=== PATIENT | female | born 1970 | race Two or more races ===

== ENCOUNTER 2022-09-05 13:37 | Inpatient (IN) | payer MEDICAID, OTHER ==
[~2022-09-05] VITALS: Ht 172.7 cm; Wt 80.1 kg
[2022-09-05] MEDS ORDERED: MORPHINE SULFATE 4 MG/ML SYR/VIAL IV ONE (14:00)
[2022-09-05] MEDS ORDERED: ONDANSETRON HCL 4 MG/2 ML VIAL IV ONE (14:00)
[2022-09-05] MEDS ORDERED: SODIUM CHLORIDE 0.9% 1,000 ML IV ONE ×2 (14:00)
[2022-09-05] MEDS ORDERED: cefTRIAXone 1GM/50ML D5W 50 ML IV ONE (14:00)
[2022-09-05 14:22] LABS: Basophils # (auto) 0 10 ^3/uL (0-0.2); Basophils % (auto) 0.6 % (0.0-2.0); Eosinophils # (auto) 0.2 10 ^3/uL (0-0.8); Hematocrit 40.3 % (36.0-46.0); Hemoglobin 13.6 g/dL (12.2-16.2); Lymphocytes # (auto) 1.7 10 ^3/uL (0.4-5.4); Lymphocytes % (auto) 23.1 % (10.0-50.0); Mean Corpuscular Hgb Conc. 33.7 g/dL (32.0-36.0); Monocytes # (auto) 0.3 10 ^3/uL (0-1.3); Monocytes % (auto) 4.3 % (0.0-12.0); Nucleated Red Blood Cells % 0.1 %; Red Blood Cells 4.37 10^6/uL (4.0-5.20); Red Cell Distribution Width 14.3 % (11.8-14.3); White Blood Cell 7.3 10^3/uL (4.4-10.8)
[2022-09-05 14:38] LABS: Albumin 3.7 g/dL (3.4-5.0); Calcium 8.9 mg/dL (8.5-10.1); Potassium 3.3 mmol/L (3.5-5.1)
[2022-09-05 14:42] LABS: Bilirubin, Total 0.7 mg/dL (0.2-1.0); Total Protein 7.3 g/dL (6.4-8.2)
[2022-09-05 16:35] LABS: Urine Bacteria FEW /hpf (None Seen); Urine Blood 1+ /uL (Negative); Urine Hyaline Cast FEW /lpf (0 - 2); Urine Mucus FEW (None Seen); Urine Specific Gravity 1.028 (1.001-1.035); Urine WBC 15 /hpf (0 - 5)
[2022-09-05] MEDS ORDERED: LORA-1120 PO (18:25)
[2022-09-05] MEDS ORDERED: DIVA500T13 PO (18:25)
[2022-09-05] MEDS ORDERED: KETOROLAC TROMETH 30 MG/ML 1ML VIAL IV ONE (18:30)
[2022-09-05] MEDS ORDERED: POTASSIUM EFFERVESENT TAB 25 MEQ PO ONE (18:30)
[2022-09-05 19:18] LABS: INR 1.1 (0.9-1.15)
[2022-09-05 19:22] LABS: Lipase 104 U/L (73-393)
[2022-09-05 19:26] LABS: Cholesterol 164 mg/dL (< 200); HDL Cholesterol 66 mg/dL (40-59); LDL Cholesterol 88 mg/dL (< 100); Triglycerides 65 mg/dL (< 150)
[2022-09-05] MEDS: ONDANSETRON HCL 4 MG/2 ML VIAL IV PRN (23:24)
[2022-09-05] MEDS: SODIUM CHLORIDE 0.9% 1,000 ML IV SCH (23:41)
[2022-09-06] MEDS: SODIUM CHLORIDE 0.9% 1,000 ML IV SCH ×4 (02:51→20:10)
[2022-09-06] MEDS: KETOROLAC TROMETH 30 MG/ML 1ML VIAL IV PRN ×3 (03:15→11:46)
[2022-09-06] MEDS: ONDANSETRON HCL 4 MG/2 ML VIAL IV PRN ×2 (07:44→11:42)
[2022-09-06] MEDS: cefTRIAXone 1GM/50ML D5W 50 ML IV SCH (08:18)
[2022-09-06 08:50] LABS: Basophils # (auto) 0 10 ^3/uL (0-0.2); Basophils % (auto) 0.2 % (0.0-2.0); Eosinophils # (auto) 0 10 ^3/uL (0-0.8); Hematocrit 45.5 % (36.0-46.0); Hemoglobin 15.4 g/dL (12.2-16.2); Lymphocytes % (auto) 12.2 % (10.0-50.0); Mean Corpuscular Hemoglobin 31.3 pg (28.0-32.0); Mean Corpuscular Hgb Conc. 33.9 g/dL (32.0-36.0); Mean Corpuscular Volume 92.3 fL (80.0-100.0); Monocytes % (auto) 6.1 % (0.0-12.0); Neutrophils # (auto) 13.1 10 ^3/uL (1.6-8.6); Neutrophils % (auto) 81.5 % (37.0-80.0); Red Blood Cells 4.93 10^6/uL (4.0-5.20); Red Cell Distribution Width 14.3 % (11.8-14.3)
[2022-09-06] MEDS: MORPHINE SULFATE INJ 2 MG/ml SYRG IV PRN ×2 (09:08→15:18)
[2022-09-06 09:13] LABS: Albumin 3.3 g/dL (3.4-5.0); Calcium 9.6 mg/dL (8.5-10.1); Potassium 4.7 mmol/L (3.5-5.1)
[2022-09-06 09:17] LABS: BUN/Creatinine Ratio 40.8 (10.0-20.0); Bilirubin, Total 0.5 mg/dL (0.2-1.0)
[2022-09-06] MEDS: ENOXAPARIN SOD 40 MG/0.4 ML SYRINGE SC SCH (10:10)
[2022-09-06 16:10] VITALS: BP 143/101
[2022-09-06 17:00] VITALS: BP 148/100
[2022-09-06 22:00] VITALS: BP 149/91
[2022-09-07] VITALS (23 sets, daily range): BP systolic 125–163; BP diastolic 68–100
[2022-09-07] MEDS: MORPHINE SULFATE INJ 2 MG/ml SYRG IV PRN ×2 (00:55→08:34)
[2022-09-07] MEDS: SODIUM CHLORIDE 0.9% 1,000 ML IV SCH ×3 (02:50→22:11)
[2022-09-07] MEDS: ONDANSETRON HCL 4 MG/2 ML VIAL IV PRN (08:41)
[2022-09-07] MEDS: cefTRIAXone 1GM/50ML D5W 50 ML IV SCH (08:48)
[2022-09-07] MEDS ORDERED: GASTROGRAFIN 120 ML SOL ONE (09:48)
[2022-09-07] MEDS: ENOXAPARIN SOD 40 MG/0.4 ML SYRINGE SC SCH (10:00)
[2022-09-07] MEDS ORDERED: LORA-1120 PO (10:48)
[2022-09-07] MEDS ORDERED: metroNIDAZOLE 500MG/100ML 100 ML IV ONE (11:34)
[2022-09-07] MEDS ORDERED: SUCCINYLCHOLINE CHLORIDE 20 MG/ML 10ML VIAL IV ONE (11:52)
[2022-09-07] MEDS ORDERED: HYDROmorphone HCL 2 MG/ML VL/or syr ONE (12:04)
[2022-09-07] MEDS ORDERED: fentaNYL CITRATE 100 MCG/2 ML VL ONE (12:04)
[2022-09-07] MEDS ORDERED: fentaNYL CITRATE 5 ML ONE (12:04)
[2022-09-07] MEDS ORDERED: NEOSTIGMINE 1 MG/ML INJ (10mg/10ML VIAL) ONE (12:04)
[2022-09-07] MEDS ORDERED: SODIUM CHLORIDE LOCK 10 ML ONE (12:04)
[2022-09-07] MEDS ORDERED: MIDAZOLAM HCL 2MG/2ML 2ml VIAL (1mg/ml) ONE (12:04)
[2022-09-07] MEDS ORDERED: DexAMETHasone SOD PHOS 10MG/1ML VIAL INJ ONE (12:06)
[2022-09-07] MEDS ORDERED: GLYCOPYRROLATE 0.2 MG/ML 1ML VIAL ONE (12:06)
[2022-09-07] MEDS ORDERED: ONDANSETRON HCL 4 MG/2 ML VIAL ONE (12:06)
[2022-09-07] MEDS ORDERED: MORPHINE SULFATE INJ 2 MG/ml SYRG IV PRN (13:15)
[2022-09-07] MEDS ORDERED: METOCLOPRAMIDE HCL 5MG/ml INJ 2ml VIAL IV PRN (13:15)
[2022-09-07] MEDS ORDERED: HYDROmorphone HCL 2 MG/ML VL/or syr IV PRN ×2 (13:15)
[2022-09-07] MEDS ORDERED: DEXTROSE (50%) 50ML SYRG IV PRN (18:00)
[2022-09-07] MEDS ORDERED: hydrALAZINE HCL 20 MG/ML VL IV PRN (18:00)
[2022-09-07] MEDS: InsuLIN REG 1unit/0.01ml Soln (100units/ml) SC SCH (18:00)
[2022-09-07] MEDS: ACCU-CHEK COMFORT CURVE STRIP VI SCH (18:15)
[2022-09-07 18:31] LABS: Albumin 2.7 g/dL (3.4-5.0); BUN/Creatinine Ratio 45.7 (10.0-20.0); Calcium 8.9 mg/dL (8.5-10.1); Magnesium 2.2 mg/dL (1.6-2.6); Phosphorus 3.9 mg/dL (2.5-4.90); Potassium 4.6 mmol/L (3.5-5.1)
[2022-09-07] MEDS: HYDROmorphone HCL 2 MG/ML VL/or syr IV PRN ×2 (19:30→22:40)
[2022-09-07] MEDS: D5W/SOD CHL 0.45%/KCL 20MEQ 1,000 ML IV SCH (22:09)
[2022-09-07] MEDS: metroNIDAZOLE 500MG/100ML 100 ML IV SCH (22:09)
[2022-09-07] MEDS: ALBUMIN 25% 50 ML IV SCH (22:10)
[2022-09-08] VITALS (38 sets, daily range): BP systolic 99–167; BP diastolic 54–91
[2022-09-08] MEDS: ACCU-CHEK COMFORT CURVE STRIP VI SCH ×4 (00:27→18:06)
[2022-09-08] MEDS: InsuLIN REG 1unit/0.01ml Soln (100units/ml) SC SCH ×4 (00:28→18:00)
[2022-09-08] MEDS: HYDROmorphone HCL 2 MG/ML VL/or syr IV PRN ×3 (02:15→17:45)
[2022-09-08] MEDS: KETOROLAC TROMETH 30 MG/ML 1ML VIAL IV PRN ×2 (04:53→20:40)
[2022-09-08 05:05] LABS: Basophils # (auto) 0 10 ^3/uL (0-0.2); Basophils % (auto) 0.1 % (0.0-2.0); Eosinophils # (auto) 0 10 ^3/uL (0-0.8); Hematocrit 37.4 % (36.0-46.0); Hemoglobin 12.5 g/dL (12.2-16.2); Lymphocytes # (auto) 2.8 10 ^3/uL (0.4-5.4); Lymphocytes % (auto) 18.3 % (10.0-50.0); Mean Corpuscular Hemoglobin 31.5 pg (28.0-32.0); Mean Corpuscular Hgb Conc. 33.5 g/dL (32.0-36.0); Mean Corpuscular Volume 94.2 fL (80.0-100.0); Monocytes # (auto) 2.3 10 ^3/uL (0-1.3); Monocytes % (auto) 15.3 % (0.0-12.0); Neutrophils # (auto) 10.1 10 ^3/uL (1.6-8.6); Neutrophils % (auto) 66.3 % (37.0-80.0); Red Blood Cells 3.97 10^6/uL (4.0-5.20); Red Cell Distribution Width 14.8 % (11.8-14.3); White Blood Cell 15.3 10^3/uL (4.4-10.8)
[2022-09-08] MEDS: ALBUMIN 25% 50 ML IV SCH (05:18)
[2022-09-08 05:20] LABS: Potassium 4.5 mmol/L (3.5-5.1)
[2022-09-08 05:22] LABS: BUN/Creatinine Ratio 39.3 (10.0-20.0)
[2022-09-08] MEDS: SODIUM CHLORIDE 0.9% 1,000 ML IV SCH ×3 (05:30→19:00)
[2022-09-08] MEDS: D5W/SOD CHL 0.45%/KCL 20MEQ 1,000 ML IV SCH ×3 (06:20→23:17)
[2022-09-08] MEDS: metroNIDAZOLE 500MG/100ML 100 ML IV SCH ×3 (06:20→22:28)
[2022-09-08] MEDS: cefTRIAXone 1GM/50ML D5W 50 ML IV SCH (09:34)
[2022-09-08] MEDS: PANTOPRAZOLE 40 MG/10 ML VIAL INJ IV SCH (09:53)
[2022-09-08] MEDS: ENOXAPARIN SOD 40 MG/0.4 ML SYRINGE SC SCH (09:53)
[2022-09-08] MEDS: ONDANSETRON HCL 4 MG/2 ML VIAL IV PRN (10:06)
[2022-09-08] MEDS ORDERED: LIDOCAINE 1% (LOCAL ANESTH.) PF 5ml SDV ID ONE (17:30)
[2022-09-08] MEDS ORDERED: PPN PER PHARMACY IV NR ×8 (20:00)
[2022-09-08] MEDS ORDERED: TPN PER PHARMACY 0 ML IV SCH (20:00)
[2022-09-08] MEDS: SODIUM CHLOR 0.9% PF (SALINE LOCK) 10ML VIAL/SYR IV SCH (22:28)
[2022-09-09] VITALS (21 sets, daily range): BP systolic 108–146; BP diastolic 54–79
[2022-09-09] MEDS: ACCU-CHEK COMFORT CURVE STRIP VI SCH ×4 (00:42→18:08)
[2022-09-09] MEDS: SODIUM CHLORIDE 0.9% 1,000 ML IV SCH (01:30)
[2022-09-09] MEDS: KETOROLAC TROMETH 30 MG/ML 1ML VIAL IV PRN ×3 (01:53→18:27)
[2022-09-09] MEDS: InsuLIN REG 1unit/0.01ml Soln (100units/ml) SC SCH ×4 (06:00→18:00)
[2022-09-09] MEDS: metroNIDAZOLE 500MG/100ML 100 ML IV SCH ×2 (06:13→14:07)
[2022-09-09] MEDS: HYDROmorphone HCL 2 MG/ML VL/or syr IV PRN ×3 (06:14→22:04)
[2022-09-09] MEDS: D5W/SOD CHL 0.45%/KCL 20MEQ 1,000 ML IV SCH (07:37)
[2022-09-09 07:54] LABS: Basophils # (auto) 0 10 ^3/uL (0-0.2); Basophils % (auto) 0.3 % (0.0-2.0); Eosinophils # (auto) 0.1 10 ^3/uL (0-0.8); Hematocrit 26.7 % (36.0-46.0); Hemoglobin 9.3 g/dL (12.2-16.2); Lymphocytes # (auto) 1.8 10 ^3/uL (0.4-5.4); Lymphocytes % (auto) 20.3 % (10.0-50.0); Mean Corpuscular Hemoglobin 32.5 pg (28.0-32.0); Mean Corpuscular Hgb Conc. 34.8 g/dL (32.0-36.0); Mean Corpuscular Volume 93.4 fL (80.0-100.0); Monocytes # (auto) 0.9 10 ^3/uL (0-1.3); Monocytes % (auto) 10.4 % (0.0-12.0); Nucleated Red Blood Cells % 0.1 %; Red Blood Cells 2.86 10^6/uL (4.0-5.20); Red Cell Distribution Width 14.3 % (11.8-14.3); White Blood Cell 8.7 10^3/uL (4.4-10.8)
[2022-09-09 08:25] LABS: Albumin 2.2 g/dL (3.4-5.0); Calcium 8.1 mg/dL (8.5-10.1); Magnesium 2.1 mg/dL (1.6-2.6); Potassium 3.9 mmol/L (3.5-5.1)
[2022-09-09 08:30] LABS: BUN/Creatinine Ratio 23.7 (10.0-20.0); Bilirubin, Total 0.6 mg/dL (0.2-1.0); Phosphorus 1.2 mg/dL (2.5-4.90)
[2022-09-09] MEDS: cefTRIAXone 1GM/50ML D5W 50 ML IV SCH (09:02)
[2022-09-09] MEDS: PANTOPRAZOLE 40 MG/10 ML VIAL INJ IV SCH (09:33)
[2022-09-09] MEDS: ENOXAPARIN SOD 40 MG/0.4 ML SYRINGE SC SCH (09:44)
[2022-09-09] MEDS: SODIUM CHLOR 0.9% PF (SALINE LOCK) 10ML VIAL/SYR IV SCH (09:44)
[2022-09-09] MEDS ORDERED: POTASSIUM PHOSPHATE 22 MEQ in SODIUM CHL 0.9% 100 ML IV ONE (12:30)
[2022-09-09] MEDS: ONDANSETRON HCL 4 MG/2 ML VIAL IV PRN (16:49)
[2022-09-09] MEDS ORDERED: TPN PER PHARMACY IV NR ×8 (20:00)
[2022-09-09] MEDS: SODIUM CHL 0.9% IV SCH (21:33)
[2022-09-09] MEDS: VALPROATE IV SCH (21:33)
[2022-09-10] VITALS (13 sets, daily range): BP systolic 103–126; BP diastolic 52–67
[2022-09-10] MEDS: HYDROmorphone HCL 2 MG/ML VL/or syr IV PRN ×4 (02:47→21:06)
[2022-09-10] MEDS: metroNIDAZOLE 500MG/100ML 100 ML IV SCH ×4 (02:48→21:18)
[2022-09-10] MEDS: SODIUM CHLOR 0.9% PF (SALINE LOCK) 10ML VIAL/SYR IV SCH ×3 (02:49→21:18)
[2022-09-10 04:58] LABS: Basophils # (auto) 0 10 ^3/uL (0-0.2); Basophils % (auto) 0.4 % (0.0-2.0); Eosinophils # (auto) 0.4 10 ^3/uL (0-0.8); Eosinophils % (auto) 6.9 % (0.0-7.0); Hematocrit 24.7 % (36.0-46.0); Hemoglobin 8.8 g/dL (12.2-16.2); Lymphocytes # (auto) 1.9 10 ^3/uL (0.4-5.4); Lymphocytes % (auto) 31.1 % (10.0-50.0); Mean Corpuscular Hemoglobin 32.4 pg (28.0-32.0); Mean Corpuscular Hgb Conc. 35.5 g/dL (32.0-36.0); Mean Corpuscular Volume 91.4 fL (80.0-100.0); Monocytes # (auto) 0.5 10 ^3/uL (0-1.3); Monocytes % (auto) 7.6 % (0.0-12.0); Neutrophils # (auto) 3.4 10 ^3/uL (1.6-8.6); Red Cell Distribution Width 14.2 % (11.8-14.3); White Blood Cell 6.3 10^3/uL (4.4-10.8)
[2022-09-10 05:17] LABS: Calcium 8.4 mg/dL (8.5-10.1); Potassium 3.7 mmol/L (3.5-5.1)
[2022-09-10 05:21] LABS: BUN/Creatinine Ratio 28.9 (10.0-20.0); Bilirubin, Total 0.4 mg/dL (0.2-1.0); Phosphorus 2.7 mg/dL (2.5-4.90); Total Protein 4.8 g/dL (6.4-8.2)
[2022-09-10] MEDS: ACCU-CHEK COMFORT CURVE STRIP VI SCH ×5 (06:00→23:20)
[2022-09-10] MEDS: InsuLIN REG 1unit/0.01ml Soln (100units/ml) SC SCH ×5 (06:59→23:20)
[2022-09-10] MEDS: PANTOPRAZOLE 40 MG/10 ML VIAL INJ IV SCH (09:04)
[2022-09-10] MEDS: cefTRIAXone 1GM/50ML D5W 50 ML IV SCH (09:06)
[2022-09-10] MEDS: ENOXAPARIN SOD 40 MG/0.4 ML SYRINGE SC SCH (09:23)
[2022-09-10] MEDS: VALPROATE IV SCH (11:01)
[2022-09-10] MEDS: SODIUM CHL 0.9% IV SCH (11:01)
[2022-09-10] MEDS: ONDANSETRON HCL 4 MG/2 ML VIAL IV PRN ×2 (14:43→21:05)
[2022-09-10] MEDS ORDERED: TPN PER PHARMACY IV NR ×9 (20:00)
[2022-09-11 00:18] LABS: Albumin 1.9 g/dL (3.4-5.0); BUN/Creatinine Ratio 41.2 (10.0-20.0); Calcium 8.4 mg/dL (8.5-10.1); Potassium 3.7 mmol/L (3.5-5.1)
[2022-09-11 00:21] LABS: Bilirubin, Total 0.4 mg/dL (0.2-1.0); Total Protein 4.9 g/dL (6.4-8.2)
[2022-09-11] MEDS: HYDROmorphone HCL 2 MG/ML VL/or syr IV PRN ×4 (02:14→19:53)
[2022-09-11 05:00] VITALS: BP 133/51
[2022-09-11 05:57] LABS: Basophils # (auto) 0 10 ^3/uL (0-0.2); Basophils % (auto) 0.4 % (0.0-2.0); Eosinophils # (auto) 0.6 10 ^3/uL (0-0.8); Eosinophils % (auto) 9.5 % (0.0-7.0); Hematocrit 25.7 % (36.0-46.0); Hemoglobin 9.1 g/dL (12.2-16.2); Lymphocytes # (auto) 1.7 10 ^3/uL (0.4-5.4); Mean Corpuscular Hemoglobin 32.4 pg (28.0-32.0); Mean Corpuscular Hgb Conc. 35.3 g/dL (32.0-36.0); Mean Corpuscular Volume 91.7 fL (80.0-100.0); Monocytes # (auto) 0.5 10 ^3/uL (0-1.3); Monocytes % (auto) 8.5 % (0.0-12.0); Neutrophils # (auto) 3.3 10 ^3/uL (1.6-8.6); Neutrophils % (auto) 54.6 % (37.0-80.0); Red Blood Cells 2.81 10^6/uL (4.0-5.20); Red Cell Distribution Width 14.4 % (11.8-14.3); White Blood Cell 6.1 10^3/uL (4.4-10.8)
[2022-09-11 06:17] LABS: Calcium 8.3 mg/dL (8.5-10.1); Magnesium 2.4 mg/dL (1.6-2.6); Potassium 3.5 mmol/L (3.5-5.1)
[2022-09-11] MEDS: metroNIDAZOLE 500MG/100ML 100 ML IV SCH ×3 (06:21→22:28)
[2022-09-11 06:22] LABS: BUN/Creatinine Ratio 30.8 (10.0-20.0); Bilirubin, Total 0.4 mg/dL (0.2-1.0); Total Protein 5.1 g/dL (6.4-8.2)
[2022-09-11] MEDS: ACCU-CHEK COMFORT CURVE STRIP VI SCH ×3 (06:24→17:45)
[2022-09-11] MEDS: InsuLIN REG 1unit/0.01ml Soln (100units/ml) SC SCH ×3 (06:27→17:48)
[2022-09-11 09:00] VITALS: BP 129/66
[2022-09-11] MEDS: cefTRIAXone 1GM/50ML D5W 50 ML IV SCH (09:29)
[2022-09-11] MEDS: SODIUM CHLOR 0.9% PF (SALINE LOCK) 10ML VIAL/SYR IV SCH ×2 (09:30→22:28)
[2022-09-11] MEDS: PANTOPRAZOLE 40 MG/10 ML VIAL INJ IV SCH (09:30)
[2022-09-11] MEDS: ENOXAPARIN SOD 40 MG/0.4 ML SYRINGE SC SCH (09:31)
[2022-09-11] MEDS: ONDANSETRON HCL 4 MG/2 ML VIAL IV PRN ×3 (09:33→19:52)
[2022-09-11 13:00] VITALS: BP 116/64
[2022-09-11] MEDS ORDERED: GASTROGRAFIN 120 ML SOL ONE (13:18)
[2022-09-11 14:08] VITALS: BP 116/64
[2022-09-11 17:00] VITALS: BP 139/75
[2022-09-11] MEDS ORDERED: FAT EMULSION IV NR ×10 (20:00)
[2022-09-11] MEDS ORDERED: POTASSIUM ACETATE IV NR ×10 (20:00)
[2022-09-11] MEDS ORDERED: [UNRECOGNIZED DRUG - OTHER] IV NR ×10 (20:00)
[2022-09-11] MEDS ORDERED: SODIUM PHOSPHATES IV NR ×10 (20:00)
[2022-09-11] MEDS: SODIUM CHL 0.9% IV SCH (20:28)
[2022-09-11] MEDS: VALPROATE IV SCH (20:28)
[2022-09-11 22:00] VITALS: BP 137/71
[2022-09-12] MEDS: HYDROmorphone HCL 2 MG/ML VL/or syr IV PRN ×6 (00:02→23:39)
[2022-09-12] MEDS: ONDANSETRON HCL 4 MG/2 ML VIAL IV PRN ×4 (00:02→20:11)
[2022-09-12 05:00] VITALS: BP 120/61
[2022-09-12] MEDS: metroNIDAZOLE 500MG/100ML 100 ML IV SCH ×3 (06:11→22:51)
[2022-09-12] MEDS: ACCU-CHEK COMFORT CURVE STRIP VI SCH ×4 (06:28→18:13)
[2022-09-12] MEDS: InsuLIN REG 1unit/0.01ml Soln (100units/ml) SC SCH ×4 (06:32→18:00)
[2022-09-12 07:37] LABS: Basophils # (auto) 0 10 ^3/uL (0-0.2); Basophils % (auto) 0.2 % (0.0-2.0); Eosinophils # (auto) 0.7 10 ^3/uL (0-0.8); Eosinophils % (auto) 10.3 % (0.0-7.0); Hematocrit 26.9 % (36.0-46.0); Hemoglobin 9.5 g/dL (12.2-16.2); Lymphocytes # (auto) 1.5 10 ^3/uL (0.4-5.4); Lymphocytes % (auto) 23.1 % (10.0-50.0); Mean Corpuscular Hemoglobin 32.3 pg (28.0-32.0); Mean Corpuscular Hgb Conc. 35.2 g/dL (32.0-36.0); Mean Corpuscular Volume 91.8 fL (80.0-100.0); Monocytes # (auto) 0.6 10 ^3/uL (0-1.3); Monocytes % (auto) 8.7 % (0.0-12.0); Neutrophils # (auto) 3.7 10 ^3/uL (1.6-8.6); Neutrophils % (auto) 57.7 % (37.0-80.0); Nucleated Red Blood Cells % 0.1 %; Red Blood Cells 2.93 10^6/uL (4.0-5.20); Red Cell Distribution Width 14.1 % (11.8-14.3); White Blood Cell 6.4 10^3/uL (4.4-10.8)
[2022-09-12 07:46] LABS: Albumin 2.1 g/dL (3.4-5.0); Calcium 8.3 mg/dL (8.5-10.1); Magnesium 2.4 mg/dL (1.6-2.6); Potassium 3.4 mmol/L (3.5-5.1)
[2022-09-12 07:50] LABS: BUN/Creatinine Ratio 36.4 (10.0-20.0); Bilirubin, Total 0.3 mg/dL (0.2-1.0); Phosphorus 2.7 mg/dL (2.5-4.90); Total Protein 5.2 g/dL (6.4-8.2)
[2022-09-12] MEDS: cefTRIAXone 1GM/50ML D5W 50 ML IV SCH (08:22)
[2022-09-12] MEDS: PANTOPRAZOLE 40 MG/10 ML VIAL INJ IV SCH (08:23)
[2022-09-12] MEDS: SODIUM CHLOR 0.9% PF (SALINE LOCK) 10ML VIAL/SYR IV SCH ×2 (08:23→22:00)
[2022-09-12] MEDS: ENOXAPARIN SOD 40 MG/0.4 ML SYRINGE SC SCH (08:23)
[2022-09-12 08:34] VITALS: BP 119/62
[2022-09-12] MEDS ORDERED: POTASSIUM CHL 20MEQ/100ML 100 ML IV ONE (09:45)
[2022-09-12] MEDS ORDERED: POTASSIUM CHL 20 Meq TABLET PO ONE (11:00)
[2022-09-12 13:00] VITALS: BP 131/66
[2022-09-12 16:50] VITALS: BP 133/62
[2022-09-12] MEDS ORDERED: [UNRECOGNIZED DRUG - OTHER] IV NR ×10 (20:00)
[2022-09-12] MEDS ORDERED: POTASSIUM ACETATE IV NR ×10 (20:00)
[2022-09-12] MEDS ORDERED: SODIUM PHOSPHATES IV NR ×10 (20:00)
[2022-09-12] MEDS ORDERED: FAT EMULSION IV NR ×10 (20:00)
[2022-09-12] MEDS: VALPROATE IV SCH (21:12)
[2022-09-12] MEDS: SODIUM CHL 0.9% IV SCH (21:12)
[2022-09-12 22:00] VITALS: BP 117/55
[2022-09-13] MEDS: ONDANSETRON HCL 4 MG/2 ML VIAL IV PRN ×3 (02:31→18:27)
[2022-09-13] MEDS: HYDROmorphone HCL 2 MG/ML VL/or syr IV PRN ×2 (02:33→10:26)
[2022-09-13 05:15] VITALS: BP 117/60
[2022-09-13] MEDS: metroNIDAZOLE 500MG/100ML 100 ML IV SCH ×3 (05:35→21:45)
[2022-09-13] MEDS: ACCU-CHEK COMFORT CURVE STRIP VI SCH ×5 (05:39→23:25)
[2022-09-13] MEDS: InsuLIN REG 1unit/0.01ml Soln (100units/ml) SC SCH ×5 (05:39→23:24)
[2022-09-13 07:17] LABS: Basophils # (auto) 0 10 ^3/uL (0-0.2); Basophils % (auto) 0.3 % (0.0-2.0); Eosinophils # (auto) 0.7 10 ^3/uL (0-0.8); Eosinophils % (auto) 10.2 % (0.0-7.0); Lymphocytes # (auto) 1.3 10 ^3/uL (0.4-5.4); Mean Corpuscular Hemoglobin 32.9 pg (28.0-32.0); Monocytes # (auto) 0.6 10 ^3/uL (0-1.3); Red Cell Distribution Width 15.3 % (11.8-14.3)
[2022-09-13 07:19] LABS: Hematocrit 27.9 % (36.0-46.0); Hemoglobin 8.8 g/dL (12.2-16.2); Lymphocytes % (auto) 19.5 % (10.0-50.0); Mean Corpuscular Hgb Conc. 31.5 g/dL (32.0-36.0); Mean Corpuscular Volume 104.6 fL (80.0-100.0); Monocytes % (auto) 9.5 % (0.0-12.0); Neutrophils % (auto) 60.5 % (37.0-80.0); Red Blood Cells 2.67 10^6/uL (4.0-5.20); White Blood Cell 6.6 10^3/uL (4.4-10.8)
[2022-09-13 08:00] VITALS: BP 123/70
[2022-09-13] MEDS: PANTOPRAZOLE 40 MG/10 ML VIAL INJ IV SCH (08:30)
[2022-09-13] MEDS: cefTRIAXone 1GM/50ML D5W 50 ML IV SCH (08:30)
[2022-09-13] MEDS: SODIUM CHLOR 0.9% PF (SALINE LOCK) 10ML VIAL/SYR IV SCH ×2 (08:30→21:45)
[2022-09-13] MEDS: ENOXAPARIN SOD 40 MG/0.4 ML SYRINGE SC SCH (08:31)
[2022-09-13 10:58] LABS: Albumin 2.2 g/dL (3.4-5.0); BUN/Creatinine Ratio 25.6 (10.0-20.0); Calcium 8.9 mg/dL (8.5-10.1); Magnesium 2.1 mg/dL (1.6-2.6)
[2022-09-13 11:00] LABS: Bilirubin, Total 0.3 mg/dL (0.2-1.0); Phosphorus 2.9 mg/dL (2.5-4.90)
[2022-09-13 12:00] VITALS: BP 104/58
[2022-09-13 16:00] VITALS: BP 101/62
[2022-09-13] MEDS: SODIUM CHL 0.9% IV SCH (20:39)
[2022-09-13] MEDS: VALPROATE IV SCH (20:39)
[2022-09-13 22:00] VITALS: BP 100/53
[2022-09-14] MEDS: ONDANSETRON HCL 4 MG/2 ML VIAL IV PRN ×2 (02:50→21:20)
[2022-09-14] MEDS: HYDROmorphone HCL 2 MG/ML VL/or syr IV PRN ×2 (02:51→12:50)
[2022-09-14 05:00] VITALS: BP 101/48
[2022-09-14] MEDS: InsuLIN REG 1unit/0.01ml Soln (100units/ml) SC SCH (05:17)
[2022-09-14] MEDS: metroNIDAZOLE 500MG/100ML 100 ML IV SCH ×3 (05:17→21:04)
[2022-09-14 06:27] LABS: Hematocrit 29.4 % (36.0-46.0); Hemoglobin 10.1 g/dL (12.2-16.2); Mean Corpuscular Hemoglobin 31.7 pg (28.0-32.0); Mean Corpuscular Hgb Conc. 34.4 g/dL (32.0-36.0); Mean Corpuscular Volume 92.1 fL (80.0-100.0); White Blood Cell 6.9 10^3/uL (4.4-10.8)
[2022-09-14 06:38] LABS: Albumin 2.3 g/dL (3.4-5.0); Bilirubin, Total 0.3 mg/dL (0.2-1.0); Calcium 8.9 mg/dL (8.5-10.1); Magnesium 2.4 mg/dL (1.6-2.6); Total Protein 5.9 g/dL (6.4-8.2)
[2022-09-14 06:53] LABS: Basophils % (manual) 0 (0.0-2.0); Blast Cells 0; Metamyelocytes % 0; Myelocytes % 0; Promyelocytes % 0; Reactive Lymphocytes 0
[2022-09-14 09:00] VITALS: BP 98/51
[2022-09-14 09:57] LABS: Band Neutrophils % (manual) 4; Eosinophils % (manual) 9 (0-7); Lymphocytes % (manual) 25 (10.0-50.0); Monocytes % (manual) 8 (0-12)
[2022-09-14] MEDS: SODIUM CHLOR 0.9% PF (SALINE LOCK) 10ML VIAL/SYR IV SCH ×2 (10:20→21:04)
[2022-09-14] MEDS: cefTRIAXone 1GM/50ML D5W 50 ML IV SCH (10:21)
[2022-09-14] MEDS: PANTOPRAZOLE 40 MG/10 ML VIAL INJ IV SCH (10:21)
[2022-09-14] MEDS: ENOXAPARIN SOD 40 MG/0.4 ML SYRINGE SC SCH (10:21)
[2022-09-14 13:00] VITALS: BP 102/59
[2022-09-14] MEDS ORDERED: HYDROmorphone HCL 2 MG/ML VL/or syr IV PRN (13:45)
[2022-09-14 17:00] VITALS: BP 92/51
[2022-09-14] MEDS: traMADol HCL 50 MG TAB PO PRN (21:03)
[2022-09-14 22:00] VITALS: BP 110/55
[2022-09-15 05:00] VITALS: BP 100/48
[2022-09-15] MEDS: metroNIDAZOLE 500MG/100ML 100 ML IV SCH ×2 (05:14→14:00)
[2022-09-15 09:00] VITALS: BP 105/54
[2022-09-15] MEDS ORDERED: TRAM50TA2 PO (09:01)
[2022-09-15] MEDS: ENOXAPARIN SOD 40 MG/0.4 ML SYRINGE SC SCH (09:20)
[2022-09-15] MEDS: cefTRIAXone 1GM/50ML D5W 50 ML IV SCH (09:20)
[2022-09-15] MEDS: PANTOPRAZOLE 40 MG/10 ML VIAL INJ IV SCH (09:20)
[2022-09-15] MEDS: SODIUM CHLOR 0.9% PF (SALINE LOCK) 10ML VIAL/SYR IV SCH (09:27)
[2022-09-15] MEDS: traMADol HCL 50 MG TAB PO PRN (11:13)
[2022-09-15 11:58] VITALS: BP 105/54
== END 2022-09-15 13:40 | disposition home or self-care (01) | DRG 220 ==
LOC: ER 13:37 → EDBD 13:37 → OVERFLOW 18:24 → WEST WING 09-06 14:22 → ICU CENTRL 09-07 16:38 → DOU IN ICU 09-09 20:31 → TELE-CENTR 09-10 17:46
PROVIDERS: ADMIT Nurse Practitioner Family; ATTEND Internal Medicine Geriatric Medicine
PROC: 0D160Z9 Bypass Stomach to Duodenum, Open Approach (ICD-10-PCS; principal; 2022-09-07 12:22)
PROC: 02HV33Z Insertion of Infusion Device into Superior Vena Cava, Percutaneous Approach (ICD-10-PCS; 2022-09-08)
PROC: B548ZZA Ultrasonography of Superior Vena Cava, Guidance (ICD-10-PCS; 2022-09-08)
DX: K56.2 Volvulus (principal); K65.9 Peritonitis, unspecified; N17.9 Acute kidney failure, unspecified; E87.6 Hypokalemia; R73.9 Hyperglycemia, unspecified; R03.0 Elevated blood-pressure reading, without diagnosis of hypertension; D72.829 Elevated white blood cell count, unspecified; E86.0 Dehydration; D64.9 Anemia, unspecified; F31.9 Bipolar disorder, unspecified; Z98.84 Bariatric surgery status; Z79.899 Other long term (current) drug therapy; Z82.49 Family history of ischemic heart disease and other diseases of the circulatory system; Z82.5 Family history of asthma and other chronic lower respiratory diseases; Z83.3 Family history of diabetes mellitus; Z88.6 Allergy status to analgesic agent
CPT/HCPCS: 36415; 36569; 71045; 74018; 74176; 74250; 80048; 80053; 80061; 80069; 81001; 82962; 83036; 83605; 83690; 83735; 84100; 84443; 84484; 85007; 85025; 85027; 85610; 86850; 86900; 86901; 87040; 87070; 87075; 87081; 87086; 87205; 93005; 97110; 97116; 97163; 97530; C9113; G0378; J0330; J0696; J1100; J1815; J1885; J2250; J2405; J3480; J3490; J7131